=== PATIENT | male | born 1995 | race Two or more races ===

== ENCOUNTER 2018-03-03 12:10 | Emergency (ER) | payer MEDICAID ==
[~2018-03-03] VITALS: Ht 167.6 cm; Wt 56.7 kg
[2018-03-03 12:26] VITALS: BP 118/62
== END 2018-03-03 13:37 | disposition home or self-care (01) ==
LOC: ER 12:10
DX: Z48.01 Encounter for change or removal of surgical wound dressing (principal)
CPT/HCPCS: 71046